=== PATIENT | female | born 1985 ===

== ENCOUNTER 2019-05-28 15:17 | Inpatient (IN) | payer MEDICAID ==
[2019-05-28] VITALS (9 sets, daily range): BP systolic 101–128; BP diastolic 47–94
[~2019-05-28] VITALS: Ht 157.5 cm; Wt 75.0 kg
[2019-05-28] MEDS ORDERED: normal saline 1000ml 1,000 ML IV ONE (15:31)
[2019-05-28] MEDS ORDERED: morphine 2 MG/ML inj. syringe IV PRN (15:35)
[2019-05-28] MEDS ORDERED: normal saline 1000ML IV soln IVB ONE (15:35)
[2019-05-28 16:08] LABS: HEMOGLOBIN 7.1 g/dl (12.0-16.0); MEAN PLATELET VOLUME 5.8 FL (7.4-10.4)
[2019-05-28 16:10] LABS: BASOPHILS % (AUTO) 0.2 % (0-1); EOSINOPHILS % (AUTO) 0.3 % (0-6); HEMATOCRIT 22.8 % (35.0-45.0); LYMPHOCYTES # (AUTO) 0.8 X10'3 (1.1-4.8); LYMPHOCYTES % (AUTO) 6.5 % (21-51); MEAN CORPUSCULAR HEMOGLOBIN 19.8 PG (27.0-31.0); MEAN CORPUSCULAR VOLUME 63.8 FL (78-98); MONOCYTES % (AUTO) 8.2 % (2-12); NEUTROPHILS # (AUTO) 10.2 X10'3 (1.8-7.7); NEUTROPHILS % (AUTO) 84.8 % (42-75); PLATELET COUNT 627 X10'3 (140-440); RED BLOOD COUNT 3.57 X10'6 (4.20-5.60); WHITE BLOOD COUNT 12.1 X10'3 (4.5-11.0)
[2019-05-28 16:29] LABS: PARTIAL THROMBOPLASTIN TIME 24 SECONDS (22-32)
[2019-05-28 16:33] LABS: ALANINE AMINOTRANSFERASE 14 U/L (12-78); ALBUMIN 2.2 G/DL (3.4-5.0); ALBUMIN/GLOBULIN RATIO 0.6 (1.1-1.5); ALKALINE PHOSPHATASE 89 IU/L (46-116); ANION GAP 8 (8-16); ASPARTATE AMINO TRANSFERASE 19 U/L (10-37); BILIRUBIN,TOTAL 1.2 MG/DL (0.1-1.0); BLOOD UREA NITROGEN 8 MG/DL (7-18); BUN/CREATININE RATIO 11.9 (6.6-38.0); CALCIUM 7.6 MG/DL (8.5-10.1); CHLORIDE 106 MMOL/L (99-107); CREATININE 0.67 MG/DL (0.40-0.90); GLUCOSE 99 MG/DL (70-104); LIPASE 93 U/L (73-393); MAGNESIUM 1.5 MG/DL (1.5-2.4); POTASSIUM 3.2 MMOL/L (3.5-5.1); SODIUM 139 MMOL/L (135-145); TOTAL CARBON DIOXIDE 25.2 MMOL/L (24-32); eGFR > 90 ML/MIN
[2019-05-28 16:35] LABS: ANISOCYTOSIS 3+; HYPOCHROMASIA 2+; LARGE PLATELETS FEW; MICROCYTOSIS 2+; NUCLEATED RED BLOOD CELLS 1 /100WBC (0-0); PLATELET ESTIMATE INCREASED; TOTAL CELLS COUNTED 100
[2019-05-28 16:36] LABS: ELLIPTOCYTES FEW; POLYCHROMASIA 1+
[2019-05-28 16:37] LABS: SCHISTOCYTES FEW
[2019-05-28] MEDS ORDERED: iohexol 300mg/ml 100ml inj. ONE (17:23)
[2019-05-28] MEDS ORDERED: piperacillin/tazo 3.375gm/50ml 50 ML IV ONE (17:30)
[2019-05-28] MEDS ORDERED: ondansetron/PF 4mg/2ml inj IV PRN (17:35)
[2019-05-28] MEDS ORDERED: acetaminophen 325mg tablet PO PRN (17:35)
[2019-05-28] MEDS ORDERED: magnesium hydroxide 30ml (MOM) UD suspension PO PRN (17:35)
[2019-05-28] MEDS ORDERED: mag hydrox/Alum hydrox/simeth 30ml oral suspension PO PRN (17:35)
[2019-05-28] MEDS ORDERED: NO HOME MEDS (17:51)
--- NOTE | 2019-05-28 18:49 | NUR ---
Received a report from VIVIAN Bah and had the opportunity to ask questions.
--- NOTE | 2019-05-28 19:30 | NUR ---
Pt came to the unit via gurney and accompanied by a nurse. Pt safely transferred to the unit bed. VS taken : BP 101/60, T : 99.1, P : 95, R : 18, 5/10 pain. Nasal MRSA obtained, 2-RN skin check done. Pt placed on tele monitor #60. Pt is alert, responded appropriately when ask; clear speech.
--- NOTE | 2019-05-28 19:40 | NUR ---
Patient in room ED 16. Orienting nurse Eliza has received report from VIVIAN Bah and had the opportunity to ask questions and assume patient care. Patient came up on [facility] transported by [facility]. Belongings with patient 2 RN skin check performed, MRSA swab collected.
[2019-05-28] MEDS ORDERED: potassium Cl 20 mEq SR tablet PO PRN ×2 (20:00)
[2019-05-28] MEDS: K and/or MAG REPLACEMENT MC SCH (20:00)
[2019-05-28] MEDS: normal saline 1000ml 1,000 ML IV SCH (20:49)
[2019-05-28] MEDS: pantoprazole 40MG/NS 100ML BAG 100 ML IV SCH (21:23)
[2019-05-28] MEDS: potassium CL 10mEq/100ml bag 100 ML IV PRN ×2 (21:52→23:35)
[2019-05-28] MEDS ORDERED: HYDROcodone/acetaminophen 5mg/325mg tablet PO ONE (22:50)
[2019-05-29] VITALS (14 sets, daily range): BP systolic 108–151; BP diastolic 62–86
[2019-05-29] MEDS: normal saline 1000ml 1,000 ML IV SCH ×3 (00:12→15:15)
[2019-05-29] MEDS: piperacillin/tazo 4.5gm/100ml 100 ML IV SCH ×5 (00:18→23:57)
[2019-05-29] MEDS: pantoprazole 40MG/NS 100ML BAG 100 ML IV SCH ×5 (01:55→20:30)
[2019-05-29] MEDS: potassium CL 10mEq/100ml bag 100 ML IV PRN ×2 (01:57→03:59)
[2019-05-29 05:00] LABS: BASOPHILS # (AUTO) 0.1 X10'3 (0-0.2); BASOPHILS % (AUTO) 0.9 % (0-1); EOSINOPHILS # (AUTO) 0.3 X10'3 (0-0.9); EOSINOPHILS % (AUTO) 3.6 % (0-6); HEMATOCRIT 30.1 % (35.0-45.0); LYMPHOCYTES % (AUTO) 13.5 % (21-51); MEAN CORPUSCULAR HEMOGLOBIN 22.6 PG (27.0-31.0); MEAN CORPUSCULAR VOLUME 68.5 FL (78-98); MEAN PLATELET VOLUME 5.7 FL (7.4-10.4); MONOCYTES # (AUTO) 0.6 X10'3 (0-0.9); NEUTROPHILS # (AUTO) 5.7 X10'3 (1.8-7.7); PLATELET COUNT 537 X10'3 (140-440); RED CELL DISTRIBUTION WIDTH 27.4 % (11.5-14.5); WHITE BLOOD COUNT 7.7 X10'3 (4.5-11.0)
[2019-05-29 05:09] LABS: ALBUMIN 2.1 G/DL (3.4-5.0); ANION GAP 8 (8-16); BLOOD UREA NITROGEN 6 MG/DL (7-18); BUN/CREATININE RATIO 9.7 (6.6-38.0); CALCIUM 7.6 MG/DL (8.5-10.1); CHLORIDE 108 MMOL/L (99-107); CREATININE 0.62 MG/DL (0.40-0.90); GLUCOSE 92 MG/DL (70-104); MAGNESIUM 1.8 MG/DL (1.5-2.4); POTASSIUM 3.6 MMOL/L (3.5-5.1); SODIUM 141 MMOL/L (135-145); TOTAL CARBON DIOXIDE 24.7 MMOL/L (24-32); eGFR > 90 ML/MIN
--- NOTE | 2019-05-29 05:12 | NUR ---
I have reviewed and agree with all interventions, assessments performed and documented by VIVIAN Kay.
--- NOTE | 2019-05-29 06:25 | NUR ---
Pt is stable on shift change. Patient report given, questions answered & plan of care reviewed with Maria Eugenia.
--- NOTE | 2019-05-29 06:25 | NUR ---
Problems reprioritized. Patient report given, questions answered & plan of care reviewed with VIVIAN Del Cid.
--- NOTE | 2019-05-29 06:43 | NUR ---
Patient in room PCU 3014a. I have received report from Brenna PARK and Fatou RN and had the opportunity to ask questions and assume patient care. Patient laying in bed, awake, alert, talking on cell phone. No complaints at this time, will continue to monitor.
[2019-05-29] MEDS: K and/or MAG REPLACEMENT MC SCH ×2 (08:00→20:00)
[2019-05-29 09:24] LABS: NUCLEATED RED BLOOD CELLS 3 /100WBC (0-0); TOTAL CELLS COUNTED 100
[2019-05-29 09:25] LABS: ANISOCYTOSIS 3+; MICROCYTOSIS 2+; PLATELET ESTIMATE INCREASED
[2019-05-29 09:26] LABS: HYPOCHROMASIA 2+; POLYCHROMASIA 1+
[2019-05-29 09:27] LABS: ELLIPTOCYTES FEW; SCHISTOCYTES FEW
[2019-05-29] MEDS ORDERED: LIDOcaine Viscous 15ml cup ONE (10:03)
[2019-05-29] MEDS ORDERED: MIDAZolam 5mg/5ml vial ONE (10:03)
[2019-05-29] MEDS ORDERED: fentaNYL/PF 50MCG/1 ML 2ML syringe ONE (10:03)
--- NOTE | 2019-05-29 11:13 | NUR ---
Patient returned from GI lab, placed back in bed, awake but sleepy, able to answer all questions and is protecting airway. VS stable. No complaints at this time, states "I just want to sleep". Given pillows and blankets, all items within reach including call light. Will continue to monitor patient.
--- NOTE | 2019-05-29 11:33 | NUR ---
Initial: Pt admit with GIB and sepsis secondary to facial cellulitis. Pt with swelling on the left side of the face which is from dental infection and facial cellulitis per H&P. Pt currently NPO in GI lab for upper endoscopy. Pt may benefit from mechanical soft diet with diet advancement given dental infection and facial swelling as well as low fiber diet given hx Crohn's. [facility] 05/28. No nutrition intervention appropriate at this time. Will continue to follow. Recommendations: 1) Advance to low fiber diet as medically indicated given hx Crohn's; pt may benefit from mechanical soft food given dental infection and face swelling 2) Monitor need for additional protein with diet advancement 3) Protein education once stable 4) Bowel care PRN 5) Wt per rx Addendum: 05/29/19 at [address] Amended: Links added.
--- NOTE | 2019-05-29 18:21 | NUR ---
[facility] hospitalist, Dr. David, for receiving nurse. I spoke with Doron in GI lab, patient is scheduled to have colonoscopy tomorrow and needs to start the prep. PAGER ID: [phone] MESSAGE: Laisha mosqueda [phone]. Trey Forman [id number]. GI lab has pt for colonoscopy tomorrow. Can we order the prep for the patient? Thanks!
--- NOTE | 2019-05-29 18:22 | NUR ---
Problems reprioritized. Patient report given, questions answered & plan of care reviewed with Laisha PARK. Pt laying in bed, no distress at this time, IV medications and fluids infusing.
[2019-05-29] MEDS ORDERED: PEG 3350/Na sulf,bicarb,Cl/KCl oral sol 4 liter bottle PO ONE (18:30)
[2019-05-29] MEDS: lactobacillus rhamnosus 10,000 MMU CELLS/CAPSULE PO SCH (20:30)
--- NOTE | 2019-05-29 22:29 | NUR ---
Pge Dr. Farley AGER ID: [phone] MESSAGE: Radha Amaya in room 3014-A is in pain 09/17. Her Armstrong was D/C yesterday. T Thank you- Damir (100 character message out of a maximum of 240) CLOSE [X]
--- NOTE | 2019-05-29 23:20 | NUR ---
Page Dr. Farley: Page Sent promotional table spacer PAGER ID: [phone] MESSAGE: Radha Amaya in 3013- is scheduled to have a colosnocy tomorrow. Patient refused to drink the Golytely oral solution 4,000ml. Is there anything other solution that she can drink instead? Thank you-Damir Addendum: 05/29/19 at 4589 by Damir Lopes RN Per Dr. Farley, no substitute
--- NOTE | 2019-05-29 23:29 | NUR ---
Patient refused to drink the Golytely oral solution even after I explained to her that the colonoscopy cannot be done.
[2019-05-30] MEDS: pantoprazole 40MG/NS 100ML BAG 100 ML IV SCH ×5 (00:54→19:26)
[2019-05-30] MEDS: normal saline 1000ml 1,000 ML IV SCH ×3 (01:55→21:09)
[2019-05-30 02:00] VITALS: BP 123/70
[2019-05-30] MEDS ORDERED: acetaminophen 325mg tablet PO ONE (05:35)
[2019-05-30 06:00] VITALS: BP 151/78
--- NOTE | 2019-05-30 06:08 | NUR ---
Problems reprioritized. Patient report given, questions answered & plan of care reviewed with Maria Eugenia Morales RN. Patient stable at shift change
--- NOTE | 2019-05-30 06:20 | NUR ---
Patient in room PCU 3014A. I have received report from Laisha PARK and had the opportunity to ask questions and assume patient care. Patient laying in bed, eyes closed. No signs of distress, IV NS and protonix infusing.
[2019-05-30 06:36] LABS: ANION GAP 10 (8-16); BLOOD UREA NITROGEN 2 MG/DL (7-18); BUN/CREATININE RATIO 3.1 (6.6-38.0); CALCIUM 7.6 MG/DL (8.5-10.1); CHLORIDE 106 MMOL/L (99-107); CREATININE 0.65 MG/DL (0.40-0.90); GLUCOSE 81 MG/DL (70-104); MAGNESIUM 1.8 MG/DL (1.5-2.4); SODIUM 141 MMOL/L (135-145); TOTAL CARBON DIOXIDE 24.7 MMOL/L (24-32); eGFR > 90 ML/MIN
[2019-05-30 06:38] LABS: BASOPHILS # (AUTO) 0.1 X10'3 (0-0.2); BASOPHILS % (AUTO) 0.7 % (0-1); EOSINOPHILS # (AUTO) 0.5 X10'3 (0-0.9); EOSINOPHILS % (AUTO) 6.1 % (0-6); HEMATOCRIT 29.8 % (35.0-45.0); HEMOGLOBIN 9.4 g/dl (12.0-16.0); LYMPHOCYTES # (AUTO) 1.5 X10'3 (1.1-4.8); LYMPHOCYTES % (AUTO) 20.8 % (21-51); MEAN CORPUSCULAR HEMOGLOBIN 21.8 PG (27.0-31.0); MEAN CORPUSCULAR HGB CONC 31.7 g/dL (33.0-36.5); MEAN CORPUSCULAR VOLUME 68.7 FL (78-98); MEAN PLATELET VOLUME 6.4 FL (7.4-10.4); MONOCYTES # (AUTO) 1.2 X10'3 (0-0.9); MONOCYTES % (AUTO) 16.5 % (2-12); NEUTROPHILS # (AUTO) 4.1 X10'3 (1.8-7.7); NEUTROPHILS % (AUTO) 55.9 % (42-75); PLATELET COUNT 373 X10'3 (140-440); RED BLOOD COUNT 4.34 X10'6 (4.20-5.60); RED CELL DISTRIBUTION WIDTH 27.6 % (11.5-14.5); WHITE BLOOD COUNT 7.4 X10'3 (4.5-11.0)
[2019-05-30 06:41] LABS: POTASSIUM 2.7 MMOL/L (3.5-5.1)
--- NOTE | 2019-05-30 06:43 | NUR ---
Paged hospitalist, Dr. Farley, regarding patient's critical lab. PAGER ID: [phone] MESSAGE: Maria Eugenia mosqueda [phone]. Trey Forman [id number]. Critical lab result: K+ 2.7, down from 3.6 yesterday. Replacement protocol in place. Thanks!
[2019-05-30 07:27] LABS: ANISOCYTOSIS 3+; MICROCYTOSIS 2+; NUCLEATED RED BLOOD CELLS 3 /100WBC (0-0); PLATELET ESTIMATE NORMAL; POLYCHROMASIA 1+; TOTAL CELLS COUNTED 100
[2019-05-30 07:31] LABS: HYPOCHROMASIA 2+
[2019-05-30] MEDS: K and/or MAG REPLACEMENT MC SCH (08:00)
[2019-05-30] MEDS: lactobacillus rhamnosus 10,000 MMU CELLS/CAPSULE PO SCH ×2 (08:29→19:25)
[2019-05-30] MEDS: piperacillin/tazo 4.5gm/100ml 100 ML IV SCH ×3 (08:31→23:29)
--- NOTE | 2019-05-30 09:03 | NUR ---
Paged hospitalist, Dr. David, regarding patient. She has refused to drink golytely prep, is agreeable to mag citrate for prep. PAGER ID: [phone] MESSAGE: Maria Eugenia mosqueda [phone]. Trey Forman [id number]. Patient is agreeable to drink mag citrate for colonoscopy prep. Do you want to order this to start prepping? Thanks!
[2019-05-30] MEDS ORDERED: magnesium citrate 296ml oral solution PO ONE ×2 (09:20→19:00)
[2019-05-30] MEDS: potassium CL 10mEq/100ml bag 100 ML IV PRN ×8 (10:05→23:29)
[2019-05-30 11:00] VITALS: BP 123/75
[2019-05-30 15:00] VITALS: BP 130/81
--- NOTE | 2019-05-30 15:23 | NUR ---
Protein education: Pt diagnosed with sepsis. RD ad operations intern visited pt at bedside to provide written and verbal high protein, low fiber and Crohn's Nutrition Therapy educations with RD contact information. Pt reports no questions at this time. Pt denies any food allergies or difficulty chewing/swallowing. Will continue to monitor. Addendum: 05/30/19 at 1524 by Wing Kristin SILVA Amended: Links added. Addendum: 05/30/19 at [address] RICARDO Approves
[2019-05-30 18:00] VITALS: BP 127/75
--- NOTE | 2019-05-30 18:16 | NUR ---
Patient in room PCU 3011J. I have received report from Maria Eugenia Morales RN and had the opportunity to ask questions and assume patient care. Patient denies CP, dizziness, SOB, n/v. Patient is schedule to have a colostomy tomorrow.
--- NOTE | 2019-05-30 18:16 | NUR ---
Problems reprioritized. Patient report given, questions answered & plan of care reviewed with Laisha PARK. Pt using BSC, stable at time of report.
[2019-05-30 22:00] VITALS: BP 125/78
[2019-05-31] VITALS (10 sets, daily range): BP systolic 112–126; BP diastolic 65–76
[2019-05-31] MEDS: pantoprazole 40MG/NS 100ML BAG 100 ML IV SCH ×5 (00:37→22:27)
--- NOTE | 2019-05-31 06:00 | NUR ---
Patient in room PCU 3014. I have received report from Damir PARK and had the opportunity to ask questions and assume patient care.
[2019-05-31 06:23] LABS: BASOPHILS % (AUTO) 0.6 % (0-1); EOSINOPHILS # (AUTO) 0.3 X10'3 (0-0.9); EOSINOPHILS % (AUTO) 5.3 % (0-6); HEMATOCRIT 29.5 % (35.0-45.0); HEMOGLOBIN 9.2 g/dl (12.0-16.0); LYMPHOCYTES # (AUTO) 1.7 X10'3 (1.1-4.8); LYMPHOCYTES % (AUTO) 27.1 % (21-51); MEAN CORPUSCULAR HEMOGLOBIN 21.5 PG (27.0-31.0); MEAN CORPUSCULAR HGB CONC 31.3 g/dL (33.0-36.5); MEAN CORPUSCULAR VOLUME 68.9 FL (78-98); MEAN PLATELET VOLUME 6.4 FL (7.4-10.4); MONOCYTES # (AUTO) 0.9 X10'3 (0-0.9); MONOCYTES % (AUTO) 15.1 % (2-12); NEUTROPHILS # (AUTO) 3.2 X10'3 (1.8-7.7); NEUTROPHILS % (AUTO) 51.9 % (42-75); PLATELET COUNT 378 X10'3 (140-440); RED BLOOD COUNT 4.28 X10'6 (4.20-5.60); RED CELL DISTRIBUTION WIDTH 28.1 % (11.5-14.5); WHITE BLOOD COUNT 6.2 X10'3 (4.5-11.0)
--- NOTE | 2019-05-31 06:25 | NUR ---
Problems reprioritized. Patient report given, questions answered & plan of care reviewed with VIVIAN Mckinney . Patient stable at shift change
[2019-05-31 06:36] LABS: ALANINE AMINOTRANSFERASE 16 U/L (12-78); ALBUMIN 2.1 G/DL (3.4-5.0); ALBUMIN/GLOBULIN RATIO 0.5 (1.1-1.5); ALKALINE PHOSPHATASE 104 IU/L (46-116); ANION GAP 7 (8-16); ASPARTATE AMINO TRANSFERASE 22 U/L (10-37); BILIRUBIN,TOTAL 0.6 MG/DL (0.1-1.0); BLOOD UREA NITROGEN 1 MG/DL (7-18); BUN/CREATININE RATIO 1.5 (6.6-38.0); CALCIUM 7.9 MG/DL (8.5-10.1); CHLORIDE 107 MMOL/L (99-107); CREATININE 0.68 MG/DL (0.40-0.90); GLUCOSE 93 MG/DL (70-104); MAGNESIUM 2.1 MG/DL (1.5-2.4); POTASSIUM 3.4 MMOL/L (3.5-5.1); SODIUM 140 MMOL/L (135-145); TOTAL CARBON DIOXIDE 25.7 MMOL/L (24-32); eGFR > 90 ML/MIN
[2019-05-31] MEDS: piperacillin/tazo 4.5gm/100ml 100 ML IV SCH ×3 (07:37→23:30)
[2019-05-31] MEDS: normal saline 1000ml 1,000 ML IV SCH ×2 (07:55→16:45)
[2019-05-31 09:18] LABS: TOTAL CELLS COUNTED 100
[2019-05-31 09:19] LABS: ANISOCYTOSIS 3+; HYPOCHROMASIA 2+; MICROCYTOSIS 2+; PLATELET ESTIMATE NORMAL; POLYCHROMASIA 2+
[2019-05-31] MEDS: LORazepam 0.5 MG tablet PO PRN ×2 (09:50→19:50)
[2019-05-31] MEDS ORDERED: MIDAZolam 5mg/5ml vial ONE (10:14)
[2019-05-31] MEDS ORDERED: fentaNYL/PF 50MCG/1 ML 2ML syringe ONE (10:14)
[2019-05-31] MEDS: lactobacillus rhamnosus 10,000 MMU CELLS/CAPSULE PO SCH ×2 (13:35→19:51)
[2019-05-31] MEDS: predniSONE 20 mg tablet PO SCH (14:34)
--- NOTE | 2019-05-31 15:24 | NUR ---
Reassessment: Pt s/p colonoscopy showing colitis associated w/ Crohn's. Stool positive for blood and pending c.diff results per MD. Pt PO 100% clear liquids no reds following advancement from NPO but decreased to 0% this morning. LBM 05/30. Receiving electrolyte replacement as needed. Will monitor for further PO diet hx and tolerance as diet advances. Pt denies trouble chewing/swallowing though does have dental abscess and facial cellulitis. Will monitor for texture modifications and additional protein needs as diet advances. Recommendations: 1) Advance to low fiber diet as medically indicated given hx Crohn's; pt may benefit from mechanical soft food given dental infection and face swelling 2) Monitor for additional protein needs as diet advances 3) Bowel care PRN 4) Wt per rx Addendum: 05/31/19 at [address] Amended: Links added.
[2019-05-31] MEDS: sulfaSALAZINE 500 MG tablet PO SCH ×2 (16:00→22:06)
--- NOTE | 2019-05-31 16:49 | NUR ---
PAGER ID: [phone] MESSAGE: [phone] Trey Amaya Requesting to advance diet to regular. Kylee [facility] [phone]
--- NOTE | 2019-05-31 18:18 | NUR ---
Problems reprioritized. Patient report given, questions answered & plan of care reviewed with Damir PARK.
--- NOTE | 2019-05-31 18:18 | NUR ---
Patient in room PCU 3008. I have received report from VIVIAN Mckinney and had the opportunity to ask questions and assume patient care.
[2019-05-31] MEDS ORDERED: potassium Cl 20 mEq SR tablet PO PRN (23:55)
[2019-06-01] MEDS: pantoprazole 40MG/NS 100ML BAG 100 ML IV SCH ×3 (01:00→11:00)
[2019-06-01] MEDS: sulfaSALAZINE 500 MG tablet PO SCH ×2 (01:59→08:35)
[2019-06-01] MEDS: LORazepam 0.5 MG tablet PO PRN (01:59)
[2019-06-01 02:00] VITALS: BP 115/73
[2019-06-01] MEDS: normal saline 1000ml 1,000 ML IV SCH (03:55)
[2019-06-01 06:00] VITALS: BP 124/65
--- NOTE | 2019-06-01 06:26 | NUR ---
Problems reprioritized. Patient report given, questions answered & plan of care reviewed with VIVIAN Keller. Patient stable at shift change
[2019-06-01 06:54] LABS: ALBUMIN 2.1 G/DL (3.4-5.0); ANION GAP 7 (8-16); BLOOD UREA NITROGEN 6 MG/DL (7-18); BUN/CREATININE RATIO 9.1 (6.6-38.0); CALCIUM 8.3 MG/DL (8.5-10.1); CHLORIDE 107 MMOL/L (99-107); CREATININE 0.66 MG/DL (0.40-0.90); GLUCOSE 127 MG/DL (70-104); MAGNESIUM 1.9 MG/DL (1.5-2.4); POTASSIUM 4.1 MMOL/L (3.5-5.1); SODIUM 140 MMOL/L (135-145); eGFR > 90 ML/MIN
[2019-06-01 06:58] LABS: BASOPHILS % (AUTO) 0.3 % (0-1); EOSINOPHILS % (AUTO) 0.2 % (0-6); HEMATOCRIT 30.4 % (35.0-45.0); HEMOGLOBIN 9.7 g/dl (12.0-16.0); LYMPHOCYTES # (AUTO) 1.1 X10'3 (1.1-4.8); LYMPHOCYTES % (AUTO) 18.9 % (21-51); MEAN CORPUSCULAR HEMOGLOBIN 22.3 PG (27.0-31.0); MEAN CORPUSCULAR VOLUME 69.7 FL (78-98); MEAN PLATELET VOLUME 6.6 FL (7.4-10.4); MONOCYTES # (AUTO) 0.7 X10'3 (0-0.9); MONOCYTES % (AUTO) 12.1 % (2-12); NEUTROPHILS # (AUTO) 4.2 X10'3 (1.8-7.7); NEUTROPHILS % (AUTO) 68.5 % (42-75); PLATELET COUNT 438 X10'3 (140-440); RED BLOOD COUNT 4.36 X10'6 (4.20-5.60); RED CELL DISTRIBUTION WIDTH 28.1 % (11.5-14.5); WHITE BLOOD COUNT 6.1 X10'3 (4.5-11.0)
[2019-06-01 07:49] LABS: ANISOCYTOSIS 3+; MICROCYTOSIS 2+; PLATELET ESTIMATE NORMAL; POIKILOCYTOSIS FEW; POLYCHROMASIA FEW
[2019-06-01] MEDS: predniSONE 20 mg tablet PO SCH (08:35)
[2019-06-01] MEDS: piperacillin/tazo 4.5gm/100ml 100 ML IV SCH (08:35)
[2019-06-01] MEDS: lactobacillus rhamnosus 10,000 MMU CELLS/CAPSULE PO SCH (08:35)
[2019-06-01 11:00] VITALS: BP 114/74
[2019-06-01] MEDS ORDERED: SULF500T59 PO (13:29)
[2019-06-01] MEDS ORDERED: AMOX-580 PO (13:29)
[2019-06-01] MEDS ORDERED: PRED10TA23 PO (13:29)
[2019-06-01] MEDS ORDERED: Lorazepam PO (13:29)
[2019-06-01] MEDS ORDERED: LACT1CAP26 PO (13:29)
--- NOTE | 2019-06-01 13:37 | NUR ---
I SPOKE TO NAOMI ARRIOLA RN REGARDING ORDER FOR C DIFF TESTING. DR DICKENS REQUESTED PT BE TESTED FOR CDIFF S/P HER COLONOSCOPY YESTERDAY. PT PLACED IN ISOLATION. DR MEIER GAVE ME A VERBAL ORDER TO SEND SAMPLE FOR CDIFF TESTING. SAMPLE SENT TO LAB. NAOMI ARRIOLA RN SPOKE TO DR QUIROGA. IT HAS BEEN DECIDED BY THEM THAT PT DOES NOT MEET CRITERIA FOR CDIFF TESTING. I HAVE INFORMED DR FLORES OF THERE DECISION. PT TO D/C TO HOME AND FU WITH HER PRIMARY MD.
[2019-06-01 15:00] VITALS: BP 125/74
--- NOTE | 2019-06-01 18:30 | NUR ---
Patient in room PCU 3008. I have received report from Ciera RN and had the opportunity to ask questions and assume patient care.
--- NOTE | 2019-06-01 18:40 | NUR ---
pt off the floor via wheelchair with assist from staff, pt transfered to personal vehicle. all lines and tele removed prior to shift change.
== END 2019-06-01 18:40 | disposition home or self-care (01) | DRG 720 ==
LOC: ER 15:18 → ED HOLD 17:32 → PCU 3S 19:25
PROVIDERS: ADMIT Family Medicine; ATTEND Family Medicine
PROC: BW211ZZ Computerized Tomography (CT Scan) of Abdomen and Pelvis using Low Osmolar Contrast (ICD-10-PCS; 2019-05-28)
PROC: 30233N1 Transfusion of Nonautologous Red Blood Cells into Peripheral Vein, Percutaneous Approach (ICD-10-PCS; 2019-05-28)
PROC: 0DJ08ZZ Inspection of Upper Intestinal Tract, Via Natural or Artificial Opening Endoscopic (ICD-10-PCS; 2019-05-29)
PROC: 0DBN8ZX Excision of Sigmoid Colon, Via Natural or Artificial Opening Endoscopic, Diagnostic (ICD-10-PCS; principal; 2019-05-31)
DX: A41.9 Sepsis, unspecified organism (principal); K29.71 Gastritis, unspecified, with bleeding; K50.111 Crohn's disease of large intestine with rectal bleeding; D62 Acute posthemorrhagic anemia; K50.911 Crohn's disease, unspecified, with rectal bleeding; K22.2 Esophageal obstruction; F12.90 Cannabis use, unspecified, uncomplicated; K04.7 Periapical abscess without sinus; L03.211 Cellulitis of face; R00.0 Tachycardia, unspecified; E87.6 Hypokalemia; K44.9 Diaphragmatic hernia without obstruction or gangrene; Z87.19 Personal history of other diseases of the digestive system; Z98.51 Tubal ligation status
CPT/HCPCS: 36415; 36430; 43235; 45380; 74177; 80048; 80053; 83605; 83690; 83735; 84132; 85025; 85610; 85730; 86078; 86870; 86880; 86885; 86900; 86901; 86922; 87040; 87081; 87324; 87449; 96365; 99152; 99291; A4620; C9113; G0378; J2250; J2543; J3010; J3480; J7030; J7040; J7512; P9016; Q9967